=== PATIENT | male | born 1980 | race Caucasian/White ===

== ENCOUNTER 2021-02-05 18:51 | Inpatient (IN) | payer OTHER, SELFPAY ==
[2021-02-05] VITALS (17 sets, daily range): BP systolic 104–141; BP diastolic 75–103; PULSE 95–114; RESP 0–24; TEMP 36.8; O2SAT 92–94
--- NOTE | ~2021-02-05 | US_ITS ---
EXAMINATION: US venous doppler [facility] DATE: 02/07/2021 10:40 INDICATION: Chest pain. TECHNIQUE: Grayscale ultrasound images without and with compression and Doppler ultrasound images of the bilateral lower extremity veins were obtained. COMPARISON: None. FINDINGS: The visualized portions of right common femoral vein, profunda (deep) femoral vein, femoral vein, pop liteal vein, posterior tibial veins, and greater saphenous vein outflow are patent. There is thrombus in the peroneal veins. The visualized portions of left common femoral vein, profunda femoral vein, femoral vein, popliteal v ein, posterior tibial veins, and greater saphenous vein outflow are patent. There is thrombus in the peroneal veins. IMPRESSION: 1. Deep vein thrombosis involving the bilateral peroneal veins. Reviewed, dictated and finalized at location A.
--- NOTE | ~2021-02-05 | XR_ITS ---
EXAMINATION: XR chest 1V portable INDICATION: Left rib pain TECHNIQUE: Portable AP chest at 2014 hours COMPARISON: None available FINDINGS: The lungs are free of acute opacities. There is no pleural effusion or pneumothorax. The ca rdiomediastinal silhouette is normal. The visualized bones and soft tissues are unremarkable. IMPRESSION: 1. No acute cardiopulmonary abnormality. Reviewed, dictated and finalized at location A.
--- NOTE | ~2021-02-05 | US_ITS ---
EXAMINATION: US abdomen limited DATE: 02/07/2021 10:40 INDICATION: Abnormal liver function tests. TECHNIQUE: Multiple grayscale and Doppler ultrasound images of the abdomen were obtained. COMPARISON: CT 02/05/2021, 09/10/2009 FINDINGS: The visualized portions of the head and body of the pancreas are normal. The liver is shelby l without focal lesion. No liver surface nodularity. There are gallstones in the gallbladder, which i s normal in size. No gallbladder wall thickening or sonographic Lakhani sign. The common duct is shelby l and measures 5 mm. The spleen is normal in size and measures 11.4 cm. There is heterogeneous echoge nicity of the spleen. IMPRESSION: 1. Cholelithiasis. No evidence of acute cholecystitis. 2. Heterogeneous splenic echogenicity, most likely infarcts. Infection or lymphoma is less likely. Reviewed, dictated and finalized at location A. IMPRESSION: 1. Cholelithiasis. No evidence of acute cholecystitis. 2. Heterogeneous splenic echogenicity, most likely infarcts. Infection or lymph natalie is less likely.
--- NOTE | ~2021-02-05 | CT_ITS ---
EXAMINATION: CTA chest PE abdomen pel DATE: 02/05/2021 21:25 INDICATION: Chest pain, nausea and vomiting TECHNIQUE: Computed tomography angiography (CTA) of the chest was performed with 100 mL Omnipaque-350 intravenous contrast timed to evaluate the pulmonary arteries. Subsequent postcontrast images of the abdomen and pelvis are obtained. Coronal maximum intensity projection 3D-reconstructions were create d by the technologist. The dose-length product (DLP) was 664.76 mGy-cm. Automated exposure control an d iterative reconstruction technique were employed. COMPARISON: 09/18/2009 FINDINGS: CTA CHEST: The pulmonary arteries are well-opacified. There are acute emboli in the right upper lobe, right middle lobe, and the right lower lobe. There are minimal dependent airspace opacities. There i s a 6 mm nodule in the right upper lobe. A 7 mm nodule in the left lower lobe measured 4 mm and 2009. Slow interval growth suggests old granulomatous disease. The heart size is normal. There are no path ologically enlarged thoracic lymph nodes. There is no pleural effusion or pneumothorax. Fluid attenua tion is noted near the scapula which could reflect bursitis. ABDOMEN/PELVIS CT: The liver, pancreas, and adrenal glands are normal. Stones are present in the nond istended gallbladder. There is a 10 mm cyst of the right kidney. The left kidney is unremarkable. The re is an approximately 8.2 x 4.3 x 11.6 cm area of masslike infiltration of the spleen which abuts th e fundus of the stomach. There is chronic periportal lymphadenopathy. There is no free intraperitonea l gas or evidence of bowel obstruction. IMPRESSION: 1. Acute pulmonary emboli in the right upper, middle, and lower lobes. 2. Enlarged heterogeneous appearing spleen which could reflect mass, abscess, or possibly infarction. 2. Cholelithiasis without evidence of cholecystitis. These findings were discussed with Dr. Cindi Kaminski MD in the Emergency Department at 2157 hours on 02/05/2021 22:01 CDT. Reviewed, dictated and finalized at location A. IMPRESSION: 1. Acute pulmonary emboli in the right upper, middle, and lower lobes. 2. Enlarged heterogeneous appearing spleen which could reflect mass, abscess, o r possibly infarction. 2. Cholelithiasis without evidence of cholecystitis. These findings were discussed with Dr. Cindi Kaminski MD in the Emergency De partment at 2157 hours on 02/05/2021 22:01 CDT.
--- NOTE | 2021-02-05 19:03 | ECG_ITS ---
Measurements Intervals [place] Rate: 112 P: 65 PA: 161 QRS: 35 QRSD: 97 T: 29 QT: 325 QTc: 445 Interpretive Statements SINUS TACHYCARDIA POSSIBLE RIGHT ATRIAL ENLARGEMENT POSSIBLE LEFT ATRIAL ENLARGEMENT INCOMPLETE RIGHT BUNDLE BRANCH BLOCK ABNORMAL ECG Electronically Signed On 02-05-2021 19:17:08 CDT by Brandon Ching D.O.
--- NOTE | 2021-02-05 19:20 | PC.NURSE ---
patient states, I have owned a gun for years, I would never use it on myself.
--- NOTE | 2021-02-05 19:28 | PC.NURSE ---
Call to Detective Feliciano at [facility]. Per this detective youth bureau, who was first to arrive on the scene, they were told that the patient was holding a pistol to his head per pt's father, and that the father got the gun away from the patient prior to PD arrival. The patient did not make any suicidal statements to them, in their presence. The detective youth bureau states he did not file involuntary paperwork because the patient went willingly to the hospital. Explained that the patient is denying all suicidal ideations. Per Predatory Animal Exterminator Lipe's lieutenant, the PD will not be filing any involuntary paperwork at this time. Johana, ecological risk assessor made aware. Preparing to place sitter at bedside at this time due to nature of patients complaint.
--- NOTE | 2021-02-05 19:38 | PC.NURSE ---
Per senior technical recruiter, pt was incontinent of large amt of stool on arrival.
[2021-02-05] MEDS: ONDANSETRON INJ 4 MG/2 ML VIAL IV PUSH (20:00)
[2021-02-05] MEDS: SODIUM CHLORIDE 0.9% IV 1,000 ML 999 ML IV CONT ×3 (20:00→23:32)
--- NOTE | 2021-02-05 20:00 | PC.NURSE ---
1:1 sitter placed at bedside due to patient's history of holding a gun to his head. Room cleared per checklist. Pt denies needs at present.
--- NOTE | 2021-02-05 20:05 | PC.NURSE ---
called main lab to add pt inr ptt d dimer, and mg ck c-reactive prot lip @ 2003, kirsten said she will look for it
--- NOTE | 2021-02-05 20:06 | ED.GENADULT ---
HPI - General Adult General Chief complaint: Overdose <Cindi Kaminski MD - Last Filed: 02/06/21 02:39> Stated complaint: fentanyl use, weakness , nausea <Cindi Kaminski MD - Last Filed: 02/06/21 02:39> Time Seen by Provider: 02/05/21 19:26 <Cindi Kaminski MD - Last Filed: 02/06/21 02:39> Source: patient, family and RN notes reviewed <Cindi Kaminski MD - Last Filed: 02/06/21 02:39> Mode of arrival: EMS <Cindi Kaminski MD - Last Filed: 02/06/21 02:39> Limitations: no limitations <Cindi Kaminski MD - Last Filed: 02/06/21 02:39> History of Present Illness HPI narrative: This is 40 year old male with history of opioid abuse who presents for evaluation of altered mental status. His father states he has been sick since Friday. He states he ate some chineses food and he has been having nausea and vomiting since. He states he went to check on him today and he was having trouble arousing him. He states while he was trying to get patient to come to hospital he placed a gun to his head. HE was able to talk the patient into giving him the gun. He called PD and EMS. Patient reports he has been having nausea and vomiting since Friday. He does admit to snorting fentanyl daily over the past 3 days. He states he was sober years prior to this . He also reports drinking alcohol last night. PAtient denies cough, chest pain or sob. He reports left flank pain that is worse with breathing. <Cindi Kaminski MD - Last Filed: 02/06/21 02:39> Related Data Allergies/adverse reactions: Allergies Allergy/AdvReac Type Severity Reaction Status Date / Time erythromycin base Allergy Mild Hives Verified 02/05/21 19:48 <Cindi Kaminski MD - Last Filed: 02/06/21 02:39> Review of Systems Review of Systems: All systems reviewed & are unremarkable except as noted in HPI and below <Cindi Kaminski MD - Last Filed: 02/06/21 02:39> Constitutional: Constitutional: Denies chills, Reports fatigue and Denies fever(s) <Cindi Kaminski MD - Last Filed: 02/06/21 02:39> Cardiovascular: Cardiovascular: Denies chest pain <Cindi Kaminski MD - Last Filed: 02/06/21 02:39> Respiratory: Respiratory: Denies cough and Denies dyspnea <Cindi Kaminski MD - Last Filed: 02/06/21 02:39> Gastrointestinal: Gastrointestinal: Reports abdominal pain, Reports nausea and Reports vomiting <Cindi Kaminski MD - Last Filed: 02/06/21 02:39> Genitourinary: Genitourinary: Denies hematuria <Cindi Kaminski MD - Last Filed: 02/06/21 02:39> Musculoskeletal: Musculoskeletal: Reports back pain <Cindi Kaminski MD - Last Filed: 02/06/21 02:39> REPLACED BY [facility] Past Medical History Medical History: Medical History (Updated 02/06/21 @ 02:38 by Cindi Kaminski MD) Psoriasis Rupture, spleen <Cindi Kaminski MD - Last Filed: 02/06/21 02:39> Surgical History Surgical History: Surgical History (Updated 02/06/21 @ 02:38 by Cindi Kaminski MD) History of mandibular surgery <Cindi Kaminski MD - Last Filed: 02/06/21 02:39> Social History Social History: Social History (Updated 02/05/21 @ 20:19 by Cindi Kaminski MD) Alcohol intake: current Substance use type: heroin and opiates <Cindi Kaminski MD - Last Filed: 02/06/21 02:39> Exam Const: General: no acute distress and alert <Cindi Kaminski MD - Last Filed: 02/06/21 02:39> Orientation/consciousness: patient oriented x3 <Cindi Kaminski MD - Last Filed: 02/06/21 02:39> Eyes: EOM: EOMs intact bilaterally <Cindi Kaminski MD - Last Filed: 02/06/21 02:39> Resp: Effort & Inspection: normal respiratory effort and no retractions <Cindi Kaminski MD - Last Filed: 02/06/21 02:39> Auscultation: clear to auscultation bilaterally <Cindi Kaminski MD - Last Filed: 02/06/21 02:39> Cardio: Rate: tachycardic <Cindi Kaminski MD - Last Filed: 02/06/21 02:39> Rhythm: regular rhythm <Cindi Kaminski
[2021-02-05 20:14] LABS: Acetaminophen < 10 ug/mL (10-30); Albumin Level 4.4 g/dL (3.5-5.1); Alkaline Phosphatase 88 U/L (38-126); Anion Gap 10 mmol/L (8-16); Basophils Absolute Auto 0.1 K/mm3 (0.0-0.1); Basophils Percent Auto 0.2 % (0.2-1.2); Bilirubin,Total 2.3 mg/dL (0.2-1.3); Blood Urea Nitrogen 30 mg/dL (9-20); Calcium 8.6 mg/dL (8.4-10.2); Carbon Dioxide 28 mmol/L (22-30); Chloride 94 mmol/L (98-107); Eosinophils Absolute Auto 0.5 K/mm3 (0-0.3); Eosinophils Percent Auto 2.4 % (0-4.4); Estimated CRCL calculation 58 ml/min; Estimated Glomerular Filt Rate 45; Ethanol < 10 mg/dL (<10); Glucose 203 mg/dL (75-110); Hematocrit 42.7 % (42.0-52.0); Hemoglobin 15.2 g/dL (14.0-18.0); Immature Granulocyte Absolute 0.32 K/mm3 (0.00-0.031); Immature Granulocyte Percent A 1.5 % (0-0.5); Lymphocytes Absolute Auto 1.24 K/mm3 (0.9-3.2); Lymphocytes Percent Auto 5.8 % (18.3-44.2); Mean Corpuscular HGB Conc 35.6 g/dl (32-36); Mean Corpuscular Hemoglobin 30.3 pg (26-34); Mean Corpuscular Volume 85.2 fl (80-100); Mean Platelet Volume 10.5 fl (7.4-10.4); Monocytes Absolute Auto 1.6 K/mm3 (0.1-0.6); Monocytes Percent Auto 7.6 % (2.6-8.5); Neutrophils Absolute Auto 17.7 K/mm3 (1.3-6.7); Neutrophils Percent Auto 82.5 % (45.5-73.1); Nucleated Red Blood Cells Absolute Auto 0.1 K/mm3 (0.0-0.012); Nucleated Red Blood Cells Perc 0.2 % (0.0-0.2); Platelet Count Result 236 k/mm3 (150-375); Red Blood Count 5.01 M/mm3 (4.6-6.20); Red Cell Distribution Width 13.8 % (11.5-14.5); Salicylate < 1.0 mg/dL (2-20); Sodium 132 mmol/L (137-145); White Blood Count 21.4 K/mm3 (4.5-10.0)
[2021-02-05 20:16] LABS: Lactic Acid Reflex 3.4 mmol/L (0.7-2.1)
[2021-02-05 20:17] LABS: Add Urine Microscopic? YES; Amphetamine Screen Urine Negative (Negative); Appearance Urine Cloudy (Clear); Bacteria Urine Trace /hpf; Barbiturate Screen Urine Negative (Negative); Benzodiazepines Screen Urine Negative (Negative); Bilirubin Urine Negative (Negative); Blood Urine 3+ (Negative); Cannabinoid Screen Urine Positive (Negative); Cocaine Screen Urine Negative (Negative); Color Urine Amber (Yellow); Glucose Urine UA 1+ mg/dL (Negative); Ketones Urine Negative (Negative); Leukocyte Esterase Ur Negative LEU/UL (Negative); Methadone Screen Urine Negative (Negative); Mucus Urine Rare /lpf; Nitrate Urine Negative (Negative); Opiate Screen Urine Negative (Negative); Phencyclidine Screen Urine Negative (Negative); Protein Urine 2+ mg/dL (Negative); RBC Urine 0-2 /hpf (0-2); Specific Grav Ur 1.014 (1.001-1.035); Squamous Epithelial Cell Urine Few /hpf (Few); WBC Urine 16-20 /hpf
[2021-02-05 20:18] LABS: INR 1.3; Prothrombin Time 16.6 Seconds (11.1-14.7)
[2021-02-05 20:44] LABS: Thyroid Stimulating Hormone 0.597 uIU/mL (0.465-4.680)
[2021-02-05 20:45] LABS: D Dimer > 20.00 ug/mL (<0.48)
[2021-02-05 20:49] LABS: Alanine Aminotransferase 908 U/L (4-50)
[2021-02-05 21:24] LABS: Aspartate Amino Transferase 1699 U/L (17-59)
[2021-02-05 22:00] LABS: Lipase 211 U/L (23-300); Magnesium 2.3 mg/dL (1.6-2.3)
[2021-02-05 22:06] LABS: CRP 17.9 mg/dL (<1.0)
[2021-02-05 22:19] LABS: Creatine Kinase 15736 U/L (55-170)
[2021-02-05 23:03] LABS: Reflex Lactic Acid Yes or No Add Lactic
--- NOTE | 2021-02-05 23:15 | PC.NURSE ---
Report to CHIDI Avila, to continue care. 1:1 sitter remains. Preparing to collect more blood and attempting to transfer.
[2021-02-05 23:38] LABS: Basophils Percent Auto 0.2 % (0.2-1.2); Eosinophils Absolute Auto 0.8 K/mm3 (0-0.3); Eosinophils Percent Auto 3.6 % (0-4.4); Hematocrit 37.5 % (42.0-52.0); Hemoglobin 13.2 g/dL (14.0-18.0); Immature Granulocyte Absolute 0.23 K/mm3 (0.00-0.031); Immature Granulocyte Percent A 1.1 % (0-0.5); Lymphocytes Absolute Auto 2.41 K/mm3 (0.9-3.2); Lymphocytes Percent Auto 11.4 % (18.3-44.2); Mean Corpuscular HGB Conc 35.2 g/dl (32-36); Mean Corpuscular Hemoglobin 30.2 pg (26-34); Mean Corpuscular Volume 85.8 fl (80-100); Mean Platelet Volume 10.1 fl (7.4-10.4); Monocytes Absolute Auto 2.7 K/mm3 (0.1-0.6); Monocytes Percent Auto 12.8 % (2.6-8.5); Neutrophils Percent Auto 70.9 % (45.5-73.1); Nucleated Red Blood Cells Perc 0.2 % (0.0-0.2); Platelet Count Result 198 k/mm3 (150-375); Red Blood Count 4.37 M/mm3 (4.6-6.20); Red Cell Distribution Width 13.9 % (11.5-14.5); White Blood Count 21.2 K/mm3 (4.5-10.0)
[2021-02-05] MEDS: HEPARIN SOD/D5W 100 UNITS/ML 25,000 UNITS/250 ML BAG 14 UNITS IV CONT (23:41)
[2021-02-05] MEDS: HEPARIN SODIUM 5,000 UNITS/ML VIAL 6500 UNITS IV PUSH (23:41)
[2021-02-05 23:48] LABS: Lactic Acid 1.5 mmol/L (0.7-2.1)
[2021-02-05 23:51] LABS: INR 1.3; Prothrombin Time 16.5 Seconds (11.1-14.7)
[2021-02-05 23:52] LABS: Partial Thromboplastin Time 27.3 SECONDS (22.3-36.8)
[2021-02-06] VITALS (65 sets, daily range): BP systolic 102–145; BP diastolic 67–106; PULSE 85–103; RESP 13–25; O2SAT 89–100; BMI 25.4
--- NOTE | 2021-02-06 | ECHO_ITS ---
Patient Info Name: Robert Oliver Age: 40 years : 1980 Gender: Male Ht: 73 in Wt: 175 lbs BSA: 2.02 m2 HR: 84 bpm BP: 123 / 91 mmHg Heart Rhythm: Sinus Rhythm Technical Quality: Fair Exam Date: 02/06/2021 10:23 AM Exam Location: [facility] Patient Status: Emergency Admit Date: 02/05/2021 Staff Ordering Physician: Taylor Luciano MD Professor Of Astronomy: Charlene Shaffer RDCS Attending Provider: Taylor Luciano MD Referring Physician: Mustapha HUERTAS; Exam Type: CA echo dop bubble study w con Study Info Indications - rule out septic emboli Complete two-dimentional, color flow and Doppler transthoracic echocardiogram is performed with agitated saline and with contrast to opacify the left ventricle and to improve the delineation of the left ventricle endocardial borders. Contrast/Agitated Saline Contrast/Ag. Saline: Agitated Saline Amount: 20.00 ml Administered By: Susan Sanches RN Existing IV Access: Yes IV Access Condition: patent with no signs of infiltration Contrast/Ag. Saline: Definity Amount: 1.00 ml Administered By: Susan Sanches RN Existing IV Access: Yes IV Access Condition: patent with no signs of infiltration Summary 1. Technically difficult study with limited views. 2. Left ventricular chamber dimension is mildly enlarged. 3. Left ventricular systolic function is normal, estimated at 55%. Paradoxical septal wall motion with D shaped septum in systole and diastole consistent with increased right ventricular pressure and/or volume overload. 4. There is no increased left ventricular wall thickness. 5. Right ventricular chamber dimension is upper limits of normal, although not well visualized.. 6. There is trace tricuspid valve regurgitation. 7. No pulmonary hypertension, estimated pulmonary arterial systolic pressure is 13 mmHg. 8. Right to left shunt with injection of agitated saline consistent with PFO versus small ASD. Left Ventricle Left ventricular chamber dimension is mildly enlarged. Left ventricular systolic function is normal, estimated at 55%. Paradoxical septal wall motion with D shaped septum in systole and diastole consistent with increased right ventricular pressure and/or volume overload. There is no increased left ventricular wall thickness. The left ventricular diastolic function is normal. Technically difficult study with limited views. Right Ventricle Right ventricular chamber dimension is upper limits of normal, although not well visualized.. Right ventricular systolic function is probably normal. Left Atria Left atrial chamber dimension is normal. Right Atria Right atrial chamber dimension is normal. Atrial Septum Right to left shunt with injection of agitated saline consistent with PFO versus small ASD. Aortic Valve The aortic valve is not well visualized. There is no aortic valve stenosis. There is no aortic valve regurgitation. Pulmonic Valve The pulmonic valve is not well visualized. Mitral Valve The mitral valve has normal leaflets. There is no mitral valve regurgitation. Tricuspid Valve The tricuspid valve leaflets are normal. There is trace tricuspid valve regurgitation. No pulmonary hypertension, estimated pulmonary arterial systolic pressure is 13 mmHg. Pericardium/Pleural The pericardium appears normal. There is no pericardial effusion. Inferior Vena Cava Teodora
[2021-02-06] MEDS: SODIUM CHLORIDE 0.9% IV 1,000 ML 200 ML IV CONT ×2 (01:26→15:00)
--- NOTE | 2021-02-06 02:49 | PC.NURSE ---
Lab requires a redraw on specimen for TNI
--- NOTE | 2021-02-06 03:39 | PC.NURSE ---
pt to move to room 13 from H2.
[2021-02-06 03:44] LABS: Troponin I 0.555 ng/mL (0.000-0.034)
--- NOTE | 2021-02-06 03:48 | PC.NURSE ---
Pt moved to ED 13 with sitter present at bedside.
[2021-02-06 06:02] LABS: INR 1.3; Prothrombin Time 16.8 Seconds (11.1-14.7)
[2021-02-06 06:04] LABS: Partial Thromboplastin Time 74.3 SECONDS (22.3-36.8)
[2021-02-06 06:06] LABS: Basophils Absolute Auto 0.1 K/mm3 (0.0-0.1); Basophils Percent Auto 0.3 % (0.2-1.2); Eosinophils Percent Auto 0.1 % (0-4.4); Hematocrit 34.4 % (42.0-52.0); Hemoglobin 12.4 g/dL (14.0-18.0); Immature Granulocyte Absolute 0.16 K/mm3 (0.00-0.031); Immature Granulocyte Percent A 0.9 % (0-0.5); Lymphocytes Absolute Auto 2.34 K/mm3 (0.9-3.2); Lymphocytes Percent Auto 13.9 % (18.3-44.2); Mean Corpuscular Hemoglobin 30.4 pg (26-34); Mean Corpuscular Volume 84.3 fl (80-100); Mean Platelet Volume 10.2 fl (7.4-10.4); Monocytes Absolute Auto 2.1 K/mm3 (0.1-0.6); Monocytes Percent Auto 12.4 % (2.6-8.5); Neutrophils Absolute Auto 12.2 K/mm3 (1.3-6.7); Neutrophils Percent Auto 72.4 % (45.5-73.1); Nucleated Red Blood Cells Perc 0.2 % (0.0-0.2); Platelet Count Result 198 k/mm3 (150-375); Red Blood Count 4.08 M/mm3 (4.6-6.20); Red Cell Distribution Width 13.7 % (11.5-14.5); White Blood Count 16.9 K/mm3 (4.5-10.0)
[2021-02-06] MEDS: SODIUM CHLORIDE 0.9% IV 1,000 ML 125 ML (06:39)
--- NOTE | 2021-02-06 07:18 | PC.NURSE ---
pt resting on stretcher. no distress noted. sitter with pt.
[2021-02-06 09:29] LABS: Creatine Kinase > 16000 U/L (55-170)
--- NOTE | 2021-02-06 10:19 | PC.NURSE ---
pt will not answer questions when asked. states he did overdose on meds yesterday. asked me to explain what happened. keeps asking me questions when i ask him questions. states he had a gun to his head yesterday for a scare tactic for his father and it was not to kill himself. pt angry. uncooperative. evasive with questions. belongings removed since pt not cooperative with questions. paper scrubs provided. pt states even if i wanted to kill myself i have nothing in this room to do it with. pt manipulative with conversation. when asked if he wanted to kill himself states i overdosed didnt i
--- NOTE | 2021-02-06 10:55 | PC.NURSE ---
cardiology at bedside for echo
[2021-02-06] MEDS: SODIUM CHLORIDE 0.9% IV 1,000 ML 999 ML IV CONT (11:14)
--- NOTE | 2021-02-06 11:16 | PC.NURSE ---
Assumed care of pt, bedside report from Annamarie MURILLO, Pt alert and orient on stretcher, sitter at bedside, lights dimmed. VSS. Nell MURILLOspecial agent in charge at bedside discussing POC per pts request.
--- NOTE | 2021-02-06 12:30 | PC.NURSE ---
called [facility] transfer line [phone], still no beds at this time, pt on waiting list
--- NOTE | 2021-02-06 12:53 | PC.NURSE ---
Per pt permission, verbal update given to sister Keisha via phone at [phone]
[2021-02-06 13:01] LABS: INR 1.3; Prothrombin Time 16.5 Seconds (11.1-14.7)
[2021-02-06 13:02] LABS: Partial Thromboplastin Time 44.1 SECONDS (22.3-36.8)
[2021-02-06 13:10] LABS: Alanine Aminotransferase 748 U/L (4-50); Albumin Level 2.9 g/dL (3.5-5.1); Alkaline Phosphatase 58 U/L (38-126); Anion Gap 0 mmol/L (8-16); Bilirubin,Total 1.9 mg/dL (0.2-1.3); Blood Urea Nitrogen 19 mg/dL (9-20); Calcium 7.2 mg/dL (8.4-10.2); Carbon Dioxide 30 mmol/L (22-30); Chloride 101 mmol/L (98-107); Estimated CRCL calculation 119 ml/min; Estimated Glomerular Filt Rate > 60; Ethanol < 10 mg/dL (<10); Glucose 124 mg/dL (75-110); Potassium 3.3 mmol/L (3.4-5.0); Sodium 131 mmol/L (137-145)
[2021-02-06 13:22] LABS: NT Pro B Type Natriuretic Pept 1510 pg/mL (5-100)
[2021-02-06 13:25] LABS: Aspartate Amino Transferase 1492 U/L (17-59)
[2021-02-06 13:27] LABS: Troponin I 0.256 ng/mL (0.000-0.034)
[2021-02-06] MEDS: HEPARIN SODIUM 5,000 UNITS/ML VIAL 6500 UNITS IV PUSH (14:05)
--- NOTE | 2021-02-06 14:31 | PC.NURSE ---
[facility] called and spoke to this RN requesting update to see if pt still needed an ICU bed. Confirmed need, states We do not have any beds available at this time, we will keep him on the wait list and notify you if any become available. EDP made aware, harbor boat pilot Nell made aware.
--- NOTE | 2021-02-06 15:22 | PC.NURSE ---
called dietary and ordered food tray for pt at this time per vorb edp
[2021-02-06] MEDS: LORazepam (*CRX) 0.5 MG TABLET PO (15:29)
[2021-02-06] MEDS: HEPARIN SOD/D5W 100 UNITS/ML 25,000 UNITS/250 ML BAG 17 UNITS IV CONT (17:48)
--- NOTE | 2021-02-06 18:15 | PM.IMHP ---
H&P: HPI History of Present Illness Date/Time: 02/06/21 18:15 Chief Complaint: Nausea, vomiting, weakness. Narrative: This is a 40-year-old male smoker with history of IV drug use who presented to the emergency department via EMS on the evening of 02/05/2021 with reports of nausea, vomiting, and weakness. Apparently he had been ill for a couple of days with nausea, vomiting, and poor oral intake. His father had encouraged him to come to the hospital to get checked out however he did not want to come so he put a gun to his head. Dad was able to talk the patient into give him him the gun and the police department and EMS were called. In the emergency department he continues to deny suicidal ideations and tells me that he put the gun to his head ?for attention.? He was found to be quite dehydrated with an acute kidney injury and evidence of rhabdomyolysis with elevated LFTs. With further questioning the patient mentions that he had been on a ?laguerre? and had been using IV fentanyl for 3 straight days to the point where he was sleeping a majority of the time. It is unclear if he was overdosing intentionally as he has contraindicated himself on several occasions. His lactic acid level was also elevated but improved with IV fluids. A CTA of the chest, abdomen and pelvis showed acute pulmonary emboli in the right upper middle and lower lobes as well as cholelithiasis without evidence of cholecystitis and enlarged heterogeneous appearing spleen which could reflect mass, abscess, or possibly infarction. Given the imaging findings Dr. Kodi wood (general surgery) was consulted and he recommended transfer to a tertiary care facility. Initially the patient requested [facility] however no beds were available and he was ultimately accepted to [facility]. A bed was still not available today and the emergency department physician spoke with Dr. Bose, surgeon and HVAC SALES REPRESENTATIVE, and he feels that the patient's medical conditions can be managed at this facility. At the time my evaluation the patient is resting comfortably and his main complaint is of pleuritic chest pain with deep inspiration, cough, and movement. He has intermittent left flank pain but nothing significant at this time. He continues to be somewhat nauseated and has only eaten a little bit of dinner today. He is urinating but reports that his urine is quite dark. He denies homicidal and suicidal ideations. No fever, chills, or sweats. No vomiting today. No diarrhea. He denies cough and shortness of breath. No dysuria. Review of Systems Review of Systems: Narrative: Twelve systems were reviewed with pertinent positives and negatives as per HPI. He denies headache and neck ache. No sinus congestion, rhinorrhea, otalgia, or odynophagia. No cough or shortness of breath. He denies orthopnea, PND, and lower extremity edema. No recent travel. No previous history of venous thromboembolism. No recent trauma but reports history of splenic laceration about 10 years ago, treated conservatively. Denies dysuria. No concerns for STDs. States he uses clean needles and does not share needles when using IV drugs. Request hepatitis and HIV testing. The patient tells me he is going through a bad divorce and has been upset regarding that but again denies suicidal and homicidal ideations at this time. No symptoms of alcohol or opiate withdrawal. Except as documented, all other systems were reviewed and are negative. [facility] Past Medical History Medical History (Updated 02/06/21 @ 22:59 by Gillian Pineda PA-C) Polysubstance abuse Psoriasis Splenic laceration Surgical History Surgical History (Updated 02/06/21 @ 22:31 by Gillian Pineda PA-C) History of mandibular surgery History of orthopedic surgery Left fibular fracture repair. Family History Family History (Updated 02/06/21 @ 22:31 by Gillian Pineda PA-C) Mother Uterine cancer Social History Social History (Updated 02/06/21 @ 22:34 by Gillian Conti
--- NOTE | 2021-02-06 18:58 | PC.NURSE ---
[facility] doesnt have a bed yet but will leave him on the list. 185
[2021-02-06 19:01] LABS: INR 1.3; Prothrombin Time 16.5 Seconds (11.1-14.7)
[2021-02-06 19:06] LABS: Partial Thromboplastin Time 90.7 SECONDS (22.3-36.8)
--- NOTE | 2021-02-06 20:16 | PC.NURSE ---
This patient, Robert Oliver, was admitted to Intensive Care Unit-9. Patient/family oriented to hospital policies and general routines including ID bracelet, bed and alarms, visiting hours, pain management, procedures, bathroom and other care routines, personal items, smoking policy, room service/diet, and visiting hours. Information on how to activate the Rapid Response Team has been discussed. Patient/Family are encouraged to report perceived risks to care and to ask questions if they do not understand what they are told or what they should do.
[2021-02-06 23:42] LABS: Partial Thromboplastin Time 59.1 SECONDS (22.3-36.8)
[2021-02-06 23:47] LABS: Alkaline Phosphatase 72 U/L (38-126); Anion Gap 1 mmol/L (8-16); Bilirubin,Total 2.2 mg/dL (0.2-1.3); Blood Urea Nitrogen 12 mg/dL (9-20); Calcium 7.7 mg/dL (8.4-10.2); Carbon Dioxide 32 mmol/L (22-30); Chloride 102 mmol/L (98-107); Estimated CRCL calculation 135 ml/min; Estimated Glomerular Filt Rate > 60; Glucose 102 mg/dL (75-110); Magnesium 1.9 mg/dL (1.6-2.3); Potassium 3.1 mmol/L (3.4-5.0); Sodium 135 mmol/L (137-145)
[2021-02-06] MEDS: NICOTINE (*PBKC) 21 MG PATCH 1 PATCH TRANSDERM (23:57)
[2021-02-06] MEDS: HEPARIN SODIUM 5,000 UNITS/ML VIAL 3000 UNITS IV PUSH (23:58)
[2021-02-06] MEDS: metroNIDAZOLE 500 MG/ISO 100ML 500 MG/100 ML BAG 100 MG IVPB (23:58)
[2021-02-07] VITALS (15 sets, daily range): BP systolic 129–146; BP diastolic 72–90; PULSE 80–99; RESP 15–24; TEMP 36.6–37.3; O2SAT 94–99
[2021-02-07 00:04] LABS: CRP 16.9 mg/dL (<1.0); Troponin I 0.201 ng/mL (0.000-0.034)
[2021-02-07 00:15] LABS: Erythrocyte Sedimentation Rate 67 mm/hr (0-20)
[2021-02-07 00:24] LABS: HIV 1/2 Ab P24 Ag Result Negative (Negative)
[2021-02-07 00:29] LABS: Creatine Kinase > 16000 U/L (55-170)
[2021-02-07 00:30] LABS: Alanine Aminotransferase 863 U/L (4-50); Aspartate Amino Transferase 1296 U/L (17-59)
[2021-02-07 00:52] LABS: Thyroid Stimulating Hormone Reflex 0.371 uIU/mL (0.465-4.68)
[2021-02-07] MEDS: POTASSIUM CHLORIDE 20 MEQ TABLET 40 MEQ PO (00:58)
[2021-02-07] MEDS: SODIUM CHLORIDE 0.9% IV 1,000 ML 150 ML IV CONT ×4 (00:58→20:26)
[2021-02-07] MEDS: ALPRAZolam (*CRX) 0.25 MG TABLET PO ×2 (00:58→23:26)
[2021-02-07 01:23] LABS: Free T4 Free Thyroxine Reflex 1.51 ng/dL (0.78-2.19)
[2021-02-07 04:10] LABS: HAV RESULT Negative (Negative); Hepatitis B Core IgM Result Negative (Negative); Hepatitis B Surface Antigen Negative (Negative)
[2021-02-07] MEDS: LORazepam (*CRX) 0.5 MG TABLET PO (04:34)
[2021-02-07 05:12] LABS: Hepatitis C Virus Antibody Negative (Negative)
[2021-02-07 06:02] LABS: Hemoglobin A1C 5.3 % (<5.7)
[2021-02-07] MEDS: metroNIDAZOLE 500 MG/ISO 100ML 500 MG/100 ML BAG 100 MG IVPB (06:21)
[2021-02-07 06:38] LABS: Basophils Percent Auto 0.3 % (0.2-1.2); Eosinophils Absolute Auto 0.1 K/mm3 (0-0.3); Eosinophils Percent Auto 0.4 % (0-4.4); Hematocrit 33.8 % (42.0-52.0); Hemoglobin 11.8 g/dL (14.0-18.0); Immature Granulocyte Absolute 0.56 K/mm3 (0.00-0.031); Immature Granulocyte Percent A 3.6 % (0-0.5); Lymphocytes Absolute Auto 2.82 K/mm3 (0.9-3.2); Mean Corpuscular HGB Conc 34.9 g/dl (32-36); Mean Corpuscular Hemoglobin 30.1 pg (26-34); Mean Corpuscular Volume 86.2 fl (80-100); Monocytes Absolute Auto 1.9 K/mm3 (0.1-0.6); Monocytes Percent Auto 12.4 % (2.6-8.5); Neutrophils Absolute Auto 10.3 K/mm3 (1.3-6.7); Neutrophils Percent Auto 65.3 % (45.5-73.1); Nucleated Red Blood Cells Absolute Auto 0.1 K/mm3 (0.0-0.012); Nucleated Red Blood Cells Perc 0.8 % (0.0-0.2); Platelet Count Result 190 k/mm3 (150-375); Red Blood Count 3.92 M/mm3 (4.6-6.20); Red Cell Distribution Width 14.5 % (11.5-14.5); White Blood Count 15.7 K/mm3 (4.5-10.0)
[2021-02-07 06:51] LABS: Alkaline Phosphatase 66 U/L (38-126); Anion Gap 0 mmol/L (8-16); Blood Urea Nitrogen 9 mg/dL (9-20); Calcium 7.9 mg/dL (8.4-10.2); Carbon Dioxide 29 mmol/L (22-30); Chloride 102 mmol/L (98-107); Estimated CRCL calculation 156 ml/min; Estimated Glomerular Filt Rate > 60; Glucose 108 mg/dL (75-110); Potassium 3.2 mmol/L (3.4-5.0); Sodium 131 mmol/L (137-145)
[2021-02-07] MEDS: HEPARIN SOD/D5W 100 UNITS/ML 25,000 UNITS/250 ML BAG 19 UNITS IV CONT (07:05)
[2021-02-07 07:06] LABS: INR 1.1; Prothrombin Time 15.2 Seconds (11.1-14.7)
[2021-02-07 07:13] LABS: Alanine Aminotransferase 865 U/L (4-50); Aspartate Amino Transferase 1161 U/L (17-59)
[2021-02-07 07:14] LABS: Creatine Kinase 15231 U/L (55-170)
[2021-02-07 07:24] LABS: Partial Thromboplastin Time 58.7 SECONDS (22.3-36.8)
[2021-02-07] MEDS: NICOTINE (*PBKC) 21 MG PATCH 1 PATCH TRANSDERM (07:55)
--- NOTE | 2021-02-07 10:08 | PM.CNGS ---
Assessment and Plan Assessment and plan (1) Abnormal CT of the abdomen: Code(s): R93.5 - Abnormal findings on diagnostic imaging of other abdominal regions, including retroperitoneum Status: Acute Assessment and Plan: This is the primary reason for our consultation. CTA of the chest, abdomen, and pelvis was reviewed and discussed with the patient in detail. There is evidence of an enlarged heterogenous appearing spleen, of which the etiology is unknown. This could be a splenic infarct that originated from septic emboli versus an emboli from his newly found right to left cardiac shunt. He also has a history of trauma to his spleen, which could potentially play a role in the abnormalities seen on the CTA, although this was about 15 years ago. This seems less likely to be a splenic abscess or mass. Clinically, the patient is having no abdominal pain and his exam is largely benign. We would recommend to continue treating the acute infection with broad-spectrum IV antibiotics. If he begins having more abdominal pain then we can treat with analgesics as needed, and otherwise closely monitor the patient. He is already showing signs of improvement with the current treatment. His white blood cell count is trending down and his lactic acid normalized following IV fluids. Would agree with ID consultation and will also await their recommendations. No indication for surgical intervention at this time. We will continue to closely monitor the patient while he is being treated for his other acute issues, and the spleen could be further evaluated over time or even as an outpatient. Okay from a surgical standpoint to allow the patient to be advanced on a diet. Thank you for allowing us to see the patient in consultation and we will continue to follow along with you. (2) Right to left cardiac shunt: Code(s): I28.0 - Arteriovenous fistula of pulmonary vessels Status: Acute Assessment and Plan: Right to left cardiac shunt consistent with PFO versus small ASD on echocardiogram. Cardiology consulted. Could explain splenic infarct. (3) Sepsis: Code(s): A41.9 - Sepsis, unspecified organism Status: Acute Assessment and Plan: Sepsis criteria met in the ED with leukocytosis, tachycardia, and lactic acidosis. Lactic acid normalized. Blood cultures pending. Continue empiric IV antibiotics. Agree with ID consultation. (4) Drug overdose: Code(s): T50.901A - Poisoning by unspecified drugs, medicaments and biological substances, accidental (unintentional), initial encounter Status: Acute (5) Rhabdomyolysis: Code(s): M62.82 - Rhabdomyolysis Status: Acute Assessment and Plan: CK > 16,000 on initial labs. Possibly secondary to his sedentary positioning following heavy drug use. Continue IV fluids and management per Hospitalist. (6) Pulmonary emboli: Code(s): I26.99 - Other pulmonary embolism without acute cor pulmonale Status: Acute Assessment and Plan: Currently on a Heparin drip. Currently being worked up for the source of this. Venous dopplers ordered. (7) Acute kidney injury: Code(s): N17.9 - Acute kidney failure, unspecified Status: Acute Assessment and Plan: Related to rhabdomyolysis and dehydration. Improved with current treatment. Creatinine normal. (8) Elevated troponin: Code(s): R77.8 - Other specified abnormalities of plasma proteins Status: Acute Assessment and Plan: Serial troponins were flat. Echocardiogram noted. Management per Hospitalist. (9) Transaminitis: Code(s): R74.01 - Elevation of levels of liver transaminase levels Status: Acute Assessment and Plan: Hepatitis panel negative. Likely related to rhabdomyolysis. (10) Polysubstance abuse: Code(s): F19.10 - Other psychoactive substance abuse, uncomplicated Status: Acute Assessment and Plan: Opiate and tobacco abuse. Patient repo
[2021-02-07 14:27] LABS: Total Triiodothyronine (T3) 0.94 NG/ML (0.97-1.69)
--- NOTE | 2021-02-07 14:38 | PM.PNGS ---
Progress Note: A&P Assessment and Plan (1) Abnormal CT of the abdomen: Code(s): R93.5 - Abnormal findings on diagnostic imaging of other abdominal regions, including retroperitoneum Status: Acute Assessment and Plan: Abnormal spleen on CT seems to be asymptomatic at the present time. I would expect splenic infarction to be painful. Apparently, he had a pretty significant splenic injury 15 years ago. It is possible that these are chronic changes associated with the injury. I do not think there is a splenic abscess or tumor. Worse case scenario would be splenic infarction which I would treat with analgesics as needed and evaluate for a source which is being done. He is on anticoagulation which will help with the splenic infarction should there actually be 1. I talked with the patient and his sister and explained our surgical role. It is unlikely any surgery will be needed. We will follow along with you. (2) Pulmonary emboli: Code(s): I26.99 - Other pulmonary embolism without acute cor pulmonale Status: Acute Assessment and Plan: Being anticoagulated. (3) Polysubstance abuse: Code(s): F19.10 - Other psychoactive substance abuse, uncomplicated Status: Chronic Assessment and Plan: Associated with suicidal ideation. (4) Sepsis: Code(s): A41.9 - Sepsis, unspecified organism Status: Acute Assessment and Plan: Agree with antibiotics. Source not really evident to me at this time. Subjective Subjective Date/Time Seen: 02/07/21 14:38 Patient is a 40-year-old man who came to the emergency room 2 days ago with evidence of sepsis and pulmonary emboli. He has a history of polysubstance abuse. He denies recent IV substance abuse but was taking fentanyl nasally and also drinking alcohol. There was also historical evidence of suicidal ideation. Workup in the emergency room showed pulmonary embolism in all 3 lobes. There were no left-sided pulmonary emboli. His CT scan also showed an abnormal spleen. The spleen was heterogeneous. He has a history of a significant splenic injury requiring hospitalization but no splenic surgery about 15 years ago. Ultrasound of the upper abdomen suggested splenic infarct. He was also noted to have gallstones but no signs of cholecystitis. Patient was seen this afternoon and actually feels much better than he did yesterday in the emergency room. He had eaten a large lunch without difficulty. He has no problems with early satiety. He also had a bowel movement without difficulty. He denies any abdominal pain at this time. Earlier today he was having some substernal pleuritic chest pain but even that seems to be better. He has been seen by Dr. johnson for Infectious Disease and is only on IV Rocephin. He is anticoagulated for the pulmonary emboli as well as for the potential splenic emboli. A venous Doppler of the lower extremities showed bilateral peroneal vein thrombosis. He had a cardiac echo which did not show vegetations but did strongly suggest a patent foramen ovale with a right to left shunt. He is seen now in surgical consultation. I reviewed the consultation done by EDINSON Saunders, and discussed the patient with her. I agree with her consultation as written. Review of Systems Review of Systems: All systems reviewed & are unremarkable except as noted in HPI and below Constitutional: Constitutional: Reports as per HPI, Denies chills, Denies fever(s) and Reports increased appetite Cardiovascular: Cardiovascular: Denies chest pain, Denies diaphoresis, Denies dyspnea and Denies paroxysmal nocturnal dyspnea Respiratory: Respiratory: Denies chest congestion, Denies cough and Denies dyspnea Gastrointestinal: Gastrointestinal: Reports as per HPI, Denies abdominal pain, Denies constipation, Denies GI cramping, Denies early satiety, Denies heartburn, Denies nausea and Denies vomiting Integumentary/Breasts: Skin/Breast: Denies l
[2021-02-07 15:03] LABS: Partial Thromboplastin Time 69.6 SECONDS (22.3-36.8)
[2021-02-07] MEDS: HEPARIN SODIUM 5,000 UNITS/ML VIAL 3000 UNITS IV PUSH (15:22)
--- NOTE | 2021-02-07 16:02 | PM.CNCAR ---
Assessment and Plan Assessment and plan (1) PFO (patent foramen ovale): Code(s): Q21.1 - Atrial septal defect Status: Acute Assessment and Plan: Incidentally noted by 2D echocardiogram. This finding has no bearing on his DVT, pulmonary embolism or clinical presentation unless it is truly felt he has distal arterial embolic phenomenon namely splenic infarction. Per surgical evaluation do not feel clinically splenic findings are veterans contact representative infarction but reflective of old injury coincident with patient's reported prior splenic injury. There is no indication for ASD closure unless it is felt he truly has arterial embolic complications such as splenic infarction. Otherwise, there is no further workup cardiac perspective indicated at this time and we will sign off. However, as above, if splenic infarction is felt to truly be present then referral to Dr. Pablo Black at [facility] for consideration of PFO closure may be indicated. Given IV drug abuse history this would not be something that would be ideally pursued given endocarditis risk. If referral felt warranted, transesophageal echocardiogram at some point in future would be necessary otherwise no indication at present. I directly counseled the patient he must remain compliant with systemic anticoagulation to reduce risk for subsequent embolic phenomena which may be life-threatening and or fatal. Patient verbalized understanding states he will be compliant as he has a 4-year-old. I explained the above in detail to the patient verbalized understanding and agreed with plan of care. Please contact us if we may be of any further assistance (2) Elevated troponin: Code(s): R77.8 - Other specified abnormalities of plasma proteins Status: Acute Assessment and Plan: Secondary to pulmonary emboli, rhabdomyolysis, acute renal failure not acute coronary syndrome/plaque rupture. He does not have anginal symptoms. No wall motion abnormalities on echocardiogram. This is consistent with a non ND troponin elevation. (3) Pulmonary emboli: Code(s): I26.99 - Other pulmonary embolism without acute cor pulmonale Status: Acute Assessment and Plan: Per primary service. Systemic anticoagulation transition to oral anticoagulation with DVT/PE protocol. (4) Polysubstance abuse: Code(s): F19.10 - Other psychoactive substance abuse, uncomplicated Status: Chronic Assessment and Plan: Social work, drug rehabilitation referral, community support. (5) Abnormal CT of the abdomen: Code(s): R93.5 - Abnormal findings on diagnostic imaging of other abdominal regions, including retroperitoneum Status: Acute Assessment and Plan: As above, surgery feel splenic abnormalities related to prior injury less likely splenic infarction given clinical presentation and lack of corroborating symptoms. Nonetheless, abdominal ultrasound interpreted by Radiology as possible splenic infarct. (6) Rhabdomyolysis: Code(s): M62.82 - Rhabdomyolysis Status: Acute Assessment and Plan: IV fluid hydration, monitor CK levels per primary service. (7) Transaminitis: Code(s): R74.01 - Elevation of levels of liver transaminase levels Status: Acute Assessment and Plan: Secondary to above. Continue to monitor closely. History of Present Illness History of Present Illness Consult date/time: Date of service: 02/07/21 16:02 Cardiology consultation at the request of ABBY Wiggins of the [facility] service for our opinion regarding PFO noted on echocardiogram in setting of pulmonary embolism. Requesting physician: Gillian Pineda PA-C Consult reason: Other (Pulmonary embolism, patent foramen ovale) Reason For Visit: Pulmonary emboli, NSTEMI, Splenic infarct, Narrative: Patient is a 40-year-old male with a history of intravenous drug use, history of splenic injury many years ago who presented to the em
--- NOTE | 2021-02-07 16:06 | PM.IMPN ---
Progress Note: A&P Assessment and Plan (1) Polysubstance abuse: Code(s): F19.10 - Other psychoactive substance abuse, uncomplicated Status: Chronic (2) Sepsis: Code(s): A41.9 - Sepsis, unspecified organism Status: Acute (3) Right to left cardiac shunt: Code(s): I28.0 - Arteriovenous fistula of pulmonary vessels Status: Acute (4) PFO (patent foramen ovale): Code(s): Q21.1 - Atrial septal defect Status: Acute (5) Elevated troponin: Code(s): R77.8 - Other specified abnormalities of plasma proteins Status: Acute (6) Abnormal CT of the abdomen: Code(s): R93.5 - Abnormal findings on diagnostic imaging of other abdominal regions, including retroperitoneum Status: Acute (7) Drug overdose: Code(s): T50.901A - Poisoning by unspecified drugs, medicaments and biological substances, accidental (unintentional), initial encounter Status: Acute (8) Rhabdomyolysis: Code(s): M62.82 - Rhabdomyolysis Status: Acute (9) Transaminitis: Code(s): R74.01 - Elevation of levels of liver transaminase levels Status: Acute (10) Acute kidney injury: Code(s): N17.9 - Acute kidney failure, unspecified Status: Acute (11) Splenic mass: Code(s): R16.1 - Splenomegaly, not elsewhere classified Status: Acute (12) Pulmonary emboli: Code(s): I26.99 - Other pulmonary embolism without acute cor pulmonale Status: Acute (13) Deep venous thrombosis (DVT) of both peroneal veins: Code(s): I82.453 - Acute embolism and thrombosis of peroneal vein, bilateral Status: Acute Additional Plan The patient met sepsis criteria on arrival to the emergency department with tachycardia, leukocytosis, lactic acidosis, and acute kidney injury. Lactic acid level has normalized with IV fluid rehydration. Blood cultures have been obtained and are pending. He has been started on empiric antibiotics given findings of possible splenic abscess on imaging. Dr. Jones (infectious Disease) has been consulted and his input is appreciated. Reportedly the patient overdosed on fentanyl several days ago and had been sleeping for days. He denies at this time that it was an intentional however has given conflicting answers to other providers. Crisis has seen him in evaluation and a sitter has been placed in the room as he also held a gun to his head and probably needs inpatient psychiatric treatment on discharge. Presumably secondary to his 3 day fentanyl ?laguerre? in which he any much slept in bed without moving much. Continue aggressive IV fluid rehydration with close monitoring of volume status, renal function, and CK. TOREY 2/2 rhabdomyolysis and dehydration. Repeat renal function has since normalized. Continue to monitor closely while trending CK. Transaminitis w history of IV drug use will check hepatitis panel as well. Cholelithiasis noted on imaging but no evidence of acute cholecystitis on CT or by exam. Nonetheless will order right upper quadrant ultrasound and continue to monitor. It is difficult to say why he has pulmonary emboli as he does not seem to have a lot of risk factors aside from not moving much for 3 days over the weekend as per HPI. CT also shows possible splenic infarction or abscess, could these be septic emboli? Continue heparin drip. Venous Doppler ultrasounds ordered for further evaluation. His troponin is elevated but has remained pretty flat. LV systolic function was normal on echo although there were findings consistent with increased right ventricular pressure and/or volume overload which may be due to his PE. No pulmonary hypertension noted. A large heterogenous appearing spleen noted on CT which could reflect mass, abscess, or possibly infarction. He is currently on heparin drip given pulmonary embolism. He is not having any significant pain at this time. As he technically meets sepsis criteria I suppose he could
[2021-02-07] MEDS: hydrOXYzine HCL 25 MG TABLET 50 MG PO (18:24)
[2021-02-07] MEDS: HEPARIN SOD/D5W 100 UNITS/ML 25,000 UNITS/250 ML BAG 21 UNITS IV CONT (20:26)
[2021-02-07 21:26] LABS: Partial Thromboplastin Time 83.2 SECONDS (22.3-36.8)
[2021-02-07] MEDS: traMADol HCL (*CRX) 25 MG TABLET PO (22:18)
[2021-02-08] VITALS (14 sets, daily range): BP systolic 120–153; BP diastolic 71–94; PULSE 69–89; RESP 16–22; TEMP 36.4–37.2; O2SAT 95–100
[2021-02-08 03:29] LABS: Alanine Aminotransferase 714 U/L (4-50); Albumin Level 2.8 g/dL (3.5-5.1); Alkaline Phosphatase 80 U/L (38-126); Anion Gap 1 mmol/L (8-16); Aspartate Amino Transferase 629 U/L (17-59); Blood Urea Nitrogen 5 mg/dL (9-20); Calcium 8.1 mg/dL (8.4-10.2); Carbon Dioxide 28 mmol/L (22-30); Chloride 109 mmol/L (98-107); Estimated CRCL calculation 156 ml/min; Estimated Glomerular Filt Rate > 60; Glucose 107 mg/dL (75-110); Magnesium 1.7 mg/dL (1.6-2.3); Phosphorus 1.9 mg/dL (2.5-4.5); Sodium 138 mmol/L (137-145)
[2021-02-08 03:46] LABS: Partial Thromboplastin Time 75.1 SECONDS (22.3-36.8)
[2021-02-08 03:57] LABS: Basophils Absolute Auto 0.4 K/mm3 (0.0-0.1); Basophils Percent Auto 1.9 % (0.2-1.2); Eosinophils Absolute Auto 0.3 K/mm3 (0-0.3); Eosinophils Percent Auto 1.4 % (0-4.4); Hematocrit 33.1 % (42.0-52.0); Hemoglobin 11.9 g/dL (14.0-18.0); Immature Granulocyte Percent A 5.6 % (0-0.5); Immature Platelet Fraction Pct 6.5 % (0.9-11.2); Lymphocytes Absolute Auto 4.23 K/mm3 (0.9-3.2); Lymphocytes Percent Auto 21.4 % (18.3-44.2); Mean Corpuscular Hemoglobin 30.2 pg (26-34); Mean Platelet Volume 10.6 fl (7.4-10.4); Monocytes Absolute Auto 2.9 K/mm3 (0.1-0.6); Monocytes Percent Auto 14.5 % (2.6-8.5); Neutrophils Absolute Auto 10.9 K/mm3 (1.3-6.7); Neutrophils Percent Auto 55.2 % (45.5-73.1); Nucleated Red Blood Cells Absolute Auto 0.1 K/mm3 (0.0-0.012); Nucleated Red Blood Cells Perc 0.5 % (0.0-0.2); Platelet Count Result 204 k/mm3 (150-375); Red Blood Count 3.94 M/mm3 (4.6-6.20); Red Cell Distribution Width 13.6 % (11.5-14.5); White Blood Count 19.7 K/mm3 (4.5-10.0)
[2021-02-08] MEDS: SODIUM CHLORIDE 0.9% IV 1,000 ML 150 ML IV CONT ×3 (05:50→20:10)
[2021-02-08] MEDS: NICOTINE (*PBKC) 21 MG PATCH 1 PATCH TRANSDERM (08:38)
[2021-02-08] MEDS: HEPARIN SOD/D5W 100 UNITS/ML 25,000 UNITS/250 ML BAG 21 UNITS IV CONT (08:41)
--- NOTE | 2021-02-08 11:03 | PM.PNGS ---
Progress Note: A&P Assessment and Plan (1) Abnormal CT of the abdomen: Code(s): R93.5 - Abnormal findings on diagnostic imaging of other abdominal regions, including retroperitoneum Status: Acute Assessment and Plan: Abnormalities in the spleen do not seem to be causing any symptoms at all. At this point I think they are more consistent with his splenic injury 15 years ago causing chronic changes to the spleen. Will follow for now but do not anticipate any surgical treatment being needed. Patient will be anticoagulated for pulmonary emboli which would be adequate treatment for any splenic emboli. (2) Polysubstance abuse: Code(s): F19.10 - Other psychoactive substance abuse, uncomplicated Status: Chronic Assessment and Plan: Possibly suicidal ideation as well (3) Right to left cardiac shunt: Code(s): I28.0 - Arteriovenous fistula of pulmonary vessels Status: Acute Assessment and Plan: Plan per Cardiology (4) Pulmonary emboli: Code(s): I26.99 - Other pulmonary embolism without acute cor pulmonale Status: Acute Assessment and Plan: Anticoagulation in progress. Subjective Subjective Date/Time Seen: 02/08/21 11:03 Patient reports: no new complaints, feels better, pain is less (Denies abdominal pain), tolerating a regular diet, bowel movement and afebrile Review of Systems Review of Systems: All systems reviewed & are unremarkable except as noted in HPI and below Constitutional: Constitutional: Denies anorexia, Denies chills, Denies fever(s), Denies headache(s) and Reports increased appetite Gastrointestinal: Gastrointestinal: Reports as per HPI, Denies abdominal pain, Denies constipation, Denies dyspepsia, Denies heartburn and Denies nausea Neurologic: Denies confusion and Denies headache(s) Exam Const: General: comfortable and no acute distress; No confusion Orientation/consciousness: patient oriented x3 and No confusion GI: Inspection: normal to inspection, non-distended and scaphoid GI Palp: Yes Soft to palpation, No Tenderness to palpation present (GI), No Guarding due to palpation present (GI), No Splenomegaly present, No Palpable mass present and No Rebound tenderness present Auscultation: normal bowel sounds Neuro: General: patient oriented x3, no focal motor deficits and No confusion Extrem: General: no calf tenderness and no edema Psych: Appearance: grossly normal Speech and movement: Normal speech and movement present Affect: normal affect Attitude: cooperative Thought process: Normal thought process present Objective Data Vital Signs Vital Signs: Vital Signs - 24 hr 02/07/21 12:00 02/07/21 14:00 02/07/21 16:00 Temperature Pulse Rate 94 85 91 Respiratory Rate 15 18 Blood Pressure 139/84 144/89 H Pulse Oximetry 96 97 02/07/21 17:37 02/07/21 20:00 02/07/21 20:27 Temperature 36.8 C Pulse Rate 84 84 80 Respiratory Rate 22 H Blood Pressure 129/72 Pulse Oximetry 99 02/07/21 22:00 02/07/21 23:59 02/08/21 00:00 Temperature 37.2 C Pulse Rate 85 80 89 Respiratory Rate 20 Blood Pressure 134/79 Pulse Oximetry 99 02/08/21 01:58 02/08/21 04:00 02/08/21 04:14 Temperature 36.6 C Pulse Rate 69 72 69 Respiratory Rate 22 H Blood Pressure 120/71 Pulse Oximetry 99 02/08/21 05:47 02/08/21 08:00 Temperature Pulse Rate 80 77 Respiratory Rate 18 Blood Pressure Pulse Oximetry 98 Intake/Output Intake/Output: Intake & Output 02/05/21 02/06/21 02/07/21 02/08/21 23:59 23:59 23:59 23:59 Intake Total 1999 2294 6299 2440 Output Total 3637 6528 2627 Balance 1999 7277 132 -900 Meds/Results Medications: Active Medications Generic Name Dose Route Start Last Admin Trade Name Freq PRN Reason Stop Dose Admin Alprazolam 0.25 mg 02/07/21 23:19 02/07/21 23:26 Alprazolam (*Crx) 0.25 Mg Tablet PO 0.25 mg ONCE PRN Administration Anxiety Heparin Sodium (Porc
--- NOTE | 2021-02-08 12:40 | WPDINFPN2 ---
Progress Note: A&P Assessment and Plan (1) Pulmonary emboli: Code(s): I26.99 - Other pulmonary embolism without acute cor pulmonale Status: Acute Assessment and Plan: 1. leukocytosis, physiologic: past spleen injury, rhabdomyolysis, and PE with infarction 2. Psoriasis, no immune suppressant REC No further antibiotics, f/u wbc over time. Call if Qs Subjective Date/time seen: 02/08/21 12:40 Objective Data Vital Signs Vital Signs: Vital Signs - 24 hr 02/07/21 14:00 02/07/21 16:00 02/07/21 17:37 Temperature Pulse Rate 85 91 84 Respiratory Rate 18 Blood Pressure 144/89 H Pulse Oximetry 97 02/07/21 20:00 02/07/21 20:27 02/07/21 22:00 Temperature 36.8 C Pulse Rate 84 80 85 Respiratory Rate 22 H Blood Pressure 129/72 Pulse Oximetry 99 02/07/21 23:59 02/08/21 00:00 02/08/21 01:58 Temperature 37.2 C Pulse Rate 80 89 69 Respiratory Rate 20 Blood Pressure 134/79 Pulse Oximetry 99 02/08/21 04:00 02/08/21 04:14 02/08/21 05:47 Temperature 36.6 C Pulse Rate 72 69 80 Respiratory Rate 22 H Blood Pressure 120/71 Pulse Oximetry 99 02/08/21 08:00 02/08/21 11:08 02/08/21 11:38 Temperature 36.4 C L Pulse Rate 77 79 Respiratory Rate 18 16 Blood Pressure 151/94 H Pulse Oximetry 98 100 95 Intake/Output Intake/Output: Intake & Output 02/05/21 02/06/21 02/07/21 02/08/21 23:59 23:59 23:59 23:59 Intake Total 1999 5836 6726 2440 Output Total 2300 5950 2625 Balance 1999 2253 463 -092 Meds/Results Medications: Active Medications Generic Name Dose Route Start Last Admin Trade Name Freq PRN Reason Stop Dose Admin Alprazolam 0.25 mg 02/07/21 23:19 02/07/21 23:26 Alprazolam (*Crx) 0.25 Mg Tablet PO 0.25 mg ONCE PRN Administration Anxiety Heparin Sodium (Porcine) 6,500 units 02/05/21 22:44 02/06/21 14:05 Heparin Sodium 5,000 Units/Ml Vial IV PUSH 6,500 units PRN PRN Administration aPTT less than 55 seconds Heparin Sodium (Porcine) 3,000 units 02/05/21 22:44 02/07/21 15:22 Heparin Sodium 5,000 Units/Ml Vial IV PUSH 3,000 units PRN PRN Administration aPTT 55 - 70 seconds Hydroxyzine HCl 50 mg 02/07/21 18:16 02/07/21 18:24 Hydroxyzine Hcl 25 Mg Tablet PO 50 mg Q6H PRN Administration Agitation Heparin Sodium/Dextrose 25,000 units in 250 mls @ 21 mls/hr 02/05/21 22:45 02/08/21 08:41 Heparin Sodium/D5w 100 Units/Ml IV CONT 2,100 units/hr .[id number] WISAM 21 mls/hr Administration Protocol 2,100 UNITS/HR Sodium Chloride 1,000 mls @ 150 mls/hr 02/07/21 00:15 02/08/21 05:50 Normal Saline Iv IV CONT 150 mls/hr .[id number] WISAM Administration Nicotine 1 patch 02/06/21 22:20 02/08/21 08:38 Nicotine (*Pbkc) 21 Mg Patch TRANSDERM 1 patch QAM WISAM Administration Potassium Chloride 40 meq 02/08/21 17:00 Potassium Chloride 20 Meq Tablet.Er PO 02/09/21 11:00 BIDWM WISAM Radiology Results: ITS Impressions Chest X-Ray 02/05/21 20:28 IMPRESSION: 1. No acute cardiopulmonary abnormality. Chest/Abdomen/Pelvis CTA 02/05/21 21:33 IMPRESSION: 1. Acute pulmonary emboli in the right upper, middle, and lower lobes. 2. Enlarged heterogeneous appearing spleen which could reflect mass, abscess, or possibly infarction. 2. Cholelithiasis without evidence of cholecystitis. These findings were discussed with Dr. Cindi Kaminski MD in the Emergency Department at 2157 hours on 02/05/2021 22:01 CDT. Venous Doppler Study 02/07/21 10:44 IMPRESSION: 1. Deep vein thrombosis involving the bilateral peroneal veins. Abdomen Ultrasound 02/07/21 11:39 IMPRESSION: 1. Cholelithiasis. No evidence of acute cholecystitis. 2. Heterogeneous splenic echogenicity, most likely infarcts. Infection or lymphoma is less likely. Labs Labs: Laboratory Results - last 24 hr 02/06/21 02/07/21 02/07/21 23:23 14:35 21:11 WBC RBC H
[2021-02-08] MEDS: POTASSIUM CHLORIDE 20 MEQ TABLET.ER 40 MEQ PO (19:00)
--- NOTE | 2021-02-08 19:54 | PM.IMPN ---
Progress Note: A&P Assessment and Plan (1) Deep venous thrombosis (DVT) of both peroneal veins: Code(s): I82.453 - Acute embolism and thrombosis of peroneal vein, bilateral Status: Acute (2) PFO (patent foramen ovale): Code(s): Q21.1 - Atrial septal defect Status: Acute (3) Polysubstance abuse: Code(s): F19.10 - Other psychoactive substance abuse, uncomplicated Status: Chronic (4) Right to left cardiac shunt: Code(s): I28.0 - Arteriovenous fistula of pulmonary vessels Status: Acute (5) Sepsis: Code(s): A41.9 - Sepsis, unspecified organism Status: Acute Assessment and Plan: Ruled out ID consult and Rocephin has been discontinued (6) Elevated troponin: Code(s): R77.8 - Other specified abnormalities of plasma proteins Status: Acute (7) Abnormal CT of the abdomen: Code(s): R93.5 - Abnormal findings on diagnostic imaging of other abdominal regions, including retroperitoneum Status: Acute (8) Drug overdose: Code(s): T50.901A - Poisoning by unspecified drugs, medicaments and biological substances, accidental (unintentional), initial encounter Status: Acute (9) Rhabdomyolysis: Code(s): M62.82 - Rhabdomyolysis Status: Acute (10) Transaminitis: Code(s): R74.01 - Elevation of levels of liver transaminase levels Status: Acute (11) Acute kidney injury: Code(s): N17.9 - Acute kidney failure, unspecified Status: Acute (12) Pulmonary emboli: Code(s): I26.99 - Other pulmonary embolism without acute cor pulmonale Status: Acute Additional Plan The patient met sepsis criteria on arrival to the emergency department with tachycardia, leukocytosis, lactic acidosis, and acute kidney injury. Lactic acid level has normalized with IV fluid rehydration. Blood cultures have been obtained and are pending. He has been started on empiric antibiotics given findings of possible splenic abscess on imaging. Dr. Jones (infectious Disease) has been consulted and his input is appreciated. Reportedly the patient overdosed on fentanyl several days ago and had been sleeping for days. He denies at this time that it was an intentional however has given conflicting answers to other providers. Crisis has seen him in evaluation and a sitter has been placed in the room as he also held a gun to his head and probably needs inpatient psychiatric treatment on discharge. Presumably secondary to his 3 day fentanyl ?laguerre? in which he any much slept in bed without moving much. Continue aggressive IV fluid rehydration with close monitoring of volume status, renal function, and CK. TOREY 2/2 rhabdomyolysis and dehydration. Repeat renal function has since normalized. Continue to monitor closely while trending CK. Transaminitis w history of IV drug use will check hepatitis panel as well. Cholelithiasis noted on imaging but no evidence of acute cholecystitis on CT or by exam. Nonetheless will order right upper quadrant ultrasound and continue to monitor. It is difficult to say why he has pulmonary emboli as he does not seem to have a lot of risk factors aside from not moving much for 3 days over the weekend as per HPI. CT also shows possible splenic infarction or abscess, could these be septic emboli? Continue heparin drip. Venous Doppler ultrasounds ordered for further evaluation. His troponin is elevated but has remained pretty flat. LV systolic function was normal on echo although there were findings consistent with increased right ventricular pressure and/or volume overload which may be due to his PE. No pulmonary hypertension noted. A large heterogenous appearing spleen noted on CT which could reflect mass, abscess, or possibly infarction. He is currently on heparin drip given pulmonary embolism. He is not having any significant pain at this time. As he technically meets sepsis criteria I suppose he could have an underlying
--- NOTE | 2021-02-08 20:00 | CONS_ITS ---
DATE OF CONSULTATION: 02/08/2021 REASON FOR CONSULTATION: Leukocytosis. HISTORY OF PRESENT ILLNESS: 40-year-old male with psoriasis. He is on no systemic nor topical immune suppressants for the same. He has been on no antibiotics in the last 6 weeks for any purpose and no other immunosuppressants for other indications in the last 6 weeks. He has never been told of leukocytosis. He was admitted to the hospital on February 05 with a suicidal gesture or intent, also rhabdomyolysis. He has had chest pain, has been found to have pulmonary emboli in association with lower extremity bilateral DVT. With his leukocytosis, initially he was given ceftriaxone, metronidazole, and vancomycin. I stopped two latter yesterday afternoon and ceftriaxone continues. His hospital course has been complicated by an abnormal echocardiogram with possible PFO or small ASD. He also had an ultrasound and abdomen CT which demonstrates a splenic injury. He reports a significant injury to the spleen about 15 years ago. PRESENT MEDICATIONS: As above. HABITS: Active tobacco, also alcohol, IV drug use. ALLERGIES: ERYTHROMYCIN CAUSED HIVES. PAST MEDICAL HISTORY: Previous pancreatitis, splenic laceration, mandibular surgery. FAMILY HISTORY: Uterine cancer. SOCIAL HISTORY: He is staying with his parents as he goes through a divorce. He has a 4-year-old child. REVIEW OF SYSTEMS: Constitutional, skin, respiratory, GI, musculoskeletal otherwise negative. EXAM: GENERAL: Middle-aged male who appears actual age. No acute distress. VITAL SIGNS: Consistently afebrile, 79, 16, 151/94, 95% on room air. SKIN: Psoriasis over upper and lower extremities. No cellulitis. EENT: The conjunctivae are normal. Mucous membranes well hydrated. NECK: No masses or meningismus. LUNGS: Clear to auscultation and percussion. CARDIAC: Regular rate and rhythm without murmur, gallop. Pulses 2+. ABDOMEN: Nontender, soft. No masses. No organomegaly. EXTREMITIES: Well perfused. No clubbing, cyanosis, edema. LABORATORY DATA: Blood cultures, no growth after 3 days incubation. Urine culture final no growth. His white count has been consistently high 21.4 on admission, 19.7 today, hemoglobin 11.9, platelets are 204. His differential noted. His chemistry panels have been normal other than low BUN and creatinine. Transaminases are 20 times normal but declining, alkaline phosphatase normal. CPK was high, also declining. His albumin is 2.8. Hepatitis panel and HIV screen all nonreactive. RADIOLOGY: CT of the abdomen and pelvis along with the abdominal ultrasound show possible splenic infarct. No other acute findings. ASSESSMENT: 1. Physiologic leukocytosis due to past splenic infarct and perhaps acute as well, also due to rhabdomyolysis and due to pulmonary emboli with infarction. No infections identified by clinical evaluation. 2. Psoriasis without substantial immunocompromise and on no immunosuppressants. 3. IV drug use. RECOMMENDATIONS: 1. No further antibiotics. 2. Follow up white blood cell count over time. Thank you very much for asking me to see him. Call for any further questions. LOKESH WETZEL M.D. PIN MAKER PIN MAKER D I MT: Katerine
[2021-02-08] MEDS: APIXABAN 5 MG TABLET 10 MG PO (20:14)
[2021-02-08] MEDS: TAPENTADOL HCL (*CRX) 50 MG TABLET PO (22:33)
[2021-02-09] MEDS: traMADol HCL (*CRX) 50 MG TABLET PO (00:15)
[2021-02-09] MEDS: SODIUM CHLORIDE 0.9% IV 1,000 ML 150 ML IV CONT ×3 (03:02→16:47)
[2021-02-09 04:21] LABS: Basophils Absolute Auto 0.1 K/mm3 (0.0-0.1); Basophils Percent Auto 0.3 % (0.2-1.2); Eosinophils Absolute Auto 0.6 K/mm3 (0-0.3); Eosinophils Percent Auto 2.6 % (0-4.4); Hematocrit 36.7 % (42.0-52.0); Immature Granulocyte Absolute 1.11 K/mm3 (0.00-0.031); Immature Granulocyte Percent A 5.1 % (0-0.5); Lymphocytes Absolute Auto 3.28 K/mm3 (0.9-3.2); Lymphocytes Percent Auto 15.1 % (18.3-44.2); Mean Corpuscular HGB Conc 35.4 g/dl (32-36); Mean Corpuscular Hemoglobin 30.7 pg (26-34); Mean Corpuscular Volume 86.6 fl (80-100); Mean Platelet Volume 9.5 fl (7.4-10.4); Monocytes Absolute Auto 3.1 K/mm3 (0.1-0.6); Monocytes Percent Auto 14.3 % (2.6-8.5); Neutrophils Absolute Auto 13.6 K/mm3 (1.3-6.7); Neutrophils Percent Auto 62.6 % (45.5-73.1); Nucleated Red Blood Cells Perc 0.2 % (0.0-0.2); Platelet Count Result 299 k/mm3 (150-375); Red Blood Count 4.24 M/mm3 (4.6-6.20); Red Cell Distribution Width 14.3 % (11.5-14.5); White Blood Count 21.7 K/mm3 (4.5-10.0)
[2021-02-09 04:40] LABS: Partial Thromboplastin Time 29.9 SECONDS (22.3-36.8)
[2021-02-09 05:01] LABS: Anion Gap 1 mmol/L (8-16); Blood Urea Nitrogen 5 mg/dL (9-20); Calcium 8.2 mg/dL (8.4-10.2); Carbon Dioxide 25 mmol/L (22-30); Chloride 111 mmol/L (98-107); Estimated CRCL calculation 156 ml/min; Estimated Glomerular Filt Rate > 60; Glucose 96 mg/dL (75-110); Magnesium 1.5 mg/dL (1.6-2.3); Potassium 3.3 mmol/L (3.4-5.0); Sodium 137 mmol/L (137-145)
[2021-02-09 05:16] LABS: Creatine Kinase 2252 U/L (55-170)
[2021-02-09 08:00] VITALS: BP 149/89; PULSE 79; RESP 16; TEMP 36.8; O2SAT 100
[2021-02-09] MEDS: NICOTINE (*PBKC) 21 MG PATCH 1 PATCH TRANSDERM (08:58)
[2021-02-09] MEDS: POTASSIUM CHLORIDE 20 MEQ TABLET.ER 40 MEQ PO (08:58)
[2021-02-09] MEDS: APIXABAN 5 MG TABLET 10 MG PO ×2 (08:58→20:41)
--- NOTE | 2021-02-09 10:44 | PM.PNGS ---
Progress Note: A&P Assessment and Plan (1) Abnormal CT of the abdomen: Code(s): R93.5 - Abnormal findings on diagnostic imaging of other abdominal regions, including retroperitoneum Status: Acute Assessment and Plan: still no complaints of left upper quadrant pain. No problems with eating. It seems most likely that the splenic changes on CT were due to the traumatic injury to the spleen suffered 15 years ago and are not really acute changes. We will follow peripherally. If patient does not develop any left upper quadrant pain or other symptoms suggestive of splenic injury or abscess, no surgical follow-up will be needed. (2) Pulmonary emboli: Code(s): I26.99 - Other pulmonary embolism without acute cor pulmonale Status: Acute Assessment and Plan: Continue anticoagulation (3) Right to left cardiac shunt: Code(s): I28.0 - Arteriovenous fistula of pulmonary vessels Status: Acute Assessment and Plan: plan per Cardiology (4) Polysubstance abuse: Code(s): F19.10 - Other psychoactive substance abuse, uncomplicated Status: Chronic Assessment and Plan: some suicidal ideation expressed as well. Subjective Subjective Date/Time Seen: 02/09/21 10:44 Patient reports: still having pain ( No abdominal pain but having pleuritic substernal chest pain when trying to sleep), tolerating a regular diet, bowel movement and afebrile Review of Systems Review of Systems: All systems reviewed & are unremarkable except as noted in HPI and below Constitutional: Constitutional: Denies anorexia, Denies body ache(s), Denies chills, Reports difficulty sleeping ( due to pleuritic chest pain), Denies fever(s) and Denies headache(s) Respiratory: Respiratory: Denies cough and Denies dyspnea Gastrointestinal: Gastrointestinal: Reports as per HPI, Denies abdominal pain, Denies bloating, Denies dyspepsia, Denies heartburn, Denies nausea and Denies vomiting Neurologic: Denies confusion and Denies headache(s) Exam Const: General: comfortable and no acute distress; No confusion Orientation/consciousness: patient oriented x3 and No confusion GI: Inspection: non-distended, scaphoid and no scars GI Palp: Yes Soft to palpation, No Tenderness to palpation present (GI), No Guarding due to palpation present (GI), No Splenomegaly present, No Palpable mass present and No Rebound tenderness present Auscultation: normal bowel sounds Neuro: General: patient oriented x3, no focal motor deficits and No confusion Extrem: General: no calf tenderness and no edema Objective Data Vital Signs Vital Signs: Vital Signs - 24 hr 02/08/21 11:08 02/08/21 11:38 02/08/21 12:00 Temperature 36.4 C L Pulse Rate 79 73 Respiratory Rate 16 Blood Pressure 151/94 H Pulse Oximetry 100 95 02/08/21 14:00 02/08/21 15:45 02/08/21 20:00 Temperature 36.5 C Pulse Rate 74 74 Respiratory Rate 16 Blood Pressure 153/88 H Pulse Oximetry 100 98 02/08/21 23:10 02/09/21 08:00 Temperature 37.2 C 36.8 C Pulse Rate 73 79 Respiratory Rate 18 16 Blood Pressure 139/85 149/89 H Pulse Oximetry 99 100 Intake/Output Intake/Output: Intake & Output 02/06/21 02/07/21 02/08/21 02/09/21 23:59 23:59 23:59 23:59 Intake Total 5850 6726 5130 2240 Output Total 2300 5950 4375 2450 Balance 3550 776 755 -210 Meds/Results Medications: Active Medications Generic Name Dose Route Start Last Admin Trade Name Freq PRN Reason Stop Dose Admin Apixaban 10 mg 02/08/21 21:00 02/09/21 08:58 Apixaban 5 Mg Tablet PO 02/15/21 21:01 10 mg Q12HR WISAM Administration Apixaban 5 mg 02/16/21 09:00 Apixaban 5 Mg Tablet PO Q12HR WISAM Hydroxyzine HCl 50 mg 02/07/21 18:16 02/07/21 18:24 Hydroxyzine Hcl 25 Mg Tablet PO 50 mg Q6H PRN Administration Agitation Sodium Chloride 1,000 mls @ 150 mls/hr 02/07/21 00:15 02/09/21 10:06 Normal Saline Iv IV CONT 150 mls/hr
--- NOTE | 2021-02-09 11:18 | PM.IMPN ---
Progress Note: A&P Assessment and Plan (1) Deep venous thrombosis (DVT) of both peroneal veins: Code(s): I82.453 - Acute embolism and thrombosis of peroneal vein, bilateral Status: Acute (2) PFO (patent foramen ovale): Code(s): Q21.1 - Atrial septal defect Status: Acute (3) Polysubstance abuse: Code(s): F19.10 - Other psychoactive substance abuse, uncomplicated Status: Chronic (4) Right to left cardiac shunt: Code(s): I28.0 - Arteriovenous fistula of pulmonary vessels Status: Acute (5) Elevated troponin: Code(s): R77.8 - Other specified abnormalities of plasma proteins Status: Acute (6) Rhabdomyolysis: Code(s): M62.82 - Rhabdomyolysis Status: Acute (7) Transaminitis: Code(s): R74.01 - Elevation of levels of liver transaminase levels Status: Acute (8) Pulmonary emboli: Code(s): I26.99 - Other pulmonary embolism without acute cor pulmonale Status: Acute (9) Acute kidney injury: Code(s): N17.9 - Acute kidney failure, unspecified Status: Acute (10) Drug overdose: Code(s): T50.901A - Poisoning by unspecified drugs, medicaments and biological substances, accidental (unintentional), initial encounter Status: Acute (11) Abnormal CT of the abdomen: Code(s): R93.5 - Abnormal findings on diagnostic imaging of other abdominal regions, including retroperitoneum Status: Acute Additional Plan The patient met sepsis criteria on arrival to the emergency department with tachycardia, leukocytosis, lactic acidosis, and acute kidney injury. Lactic acid level has normalized with IV fluid rehydration. Blood cultures have been obtained and are pending. He has been started on empiric antibiotics given findings of possible splenic abscess on imaging. Dr. Jones (infectious Disease) has been consulted and his input is appreciated. Reportedly the patient overdosed on fentanyl several days ago and had been sleeping for days. He denies at this time that it was an intentional however has given conflicting answers to other providers. Crisis has seen him in evaluation and a sitter has been placed in the room as he also held a gun to his head and probably needs inpatient psychiatric treatment on discharge. Presumably secondary to his 3 day fentanyl ?laguerre? in which he any much slept in bed without moving much. Continue aggressive IV fluid rehydration with close monitoring of volume status, renal function, and CK. TOREY 2/2 rhabdomyolysis and dehydration. Repeat renal function has since normalized. Continue to monitor closely while trending CK. Transaminitis w history of IV drug use will check hepatitis panel as well. Cholelithiasis noted on imaging but no evidence of acute cholecystitis on CT or by exam. Nonetheless will order right upper quadrant ultrasound and continue to monitor. It is difficult to say why he has pulmonary emboli as he does not seem to have a lot of risk factors aside from not moving much for 3 days over the weekend as per HPI. CT also shows possible splenic infarction or abscess, could these be septic emboli? Continue heparin drip. Venous Doppler ultrasounds ordered for further evaluation. His troponin is elevated but has remained pretty flat. LV systolic function was normal on echo although there were findings consistent with increased right ventricular pressure and/or volume overload which may be due to his PE. No pulmonary hypertension noted. A large heterogenous appearing spleen noted on CT which could reflect mass, abscess, or possibly infarction. He is currently on heparin drip given pulmonary embolism. He is not having any significant pain at this time. As he technically meets sepsis criteria I suppose he could have an underlying abscess or infection and as such he has been started on broad-spectrum antibiotics. Dr. Jones has been consulted as well. No acute ST changes noted on EKG thus likely not d
[2021-02-09] MEDS: MAGNESIUM SULF 2 GM/WATER 50ML 2 GM/50 ML BAG IVPB (12:09)
[2021-02-09 16:00] VITALS: BP 143/87; PULSE 77; RESP 18; TEMP 36.8; O2SAT 100
[2021-02-09 18:01] LABS: Troponin I 0.024 ng/mL (0.000-0.034)
[2021-02-09] MEDS: ZOLPIDEM TARTRATE (*CRX) 5 MG TABLET PO (20:41)
[2021-02-09 23:03] VITALS: O2SAT 100
[2021-02-09 23:48] VITALS: BP 140/92; PULSE 79; RESP 16; TEMP 36.6; O2SAT 100
[2021-02-10] MEDS: SODIUM CHLORIDE 0.9% IV 1,000 ML 150 ML IV CONT ×2 (00:01→06:25)
[2021-02-10] MEDS: TAPENTADOL HCL (*CRX) 50 MG TABLET PO (00:07)
[2021-02-10 04:46] LABS: Basophils Absolute Auto 0.2 K/mm3 (0.0-0.1); Basophils Percent Auto 0.8 % (0.2-1.2); Eosinophils Absolute Auto 0.6 K/mm3 (0-0.3); Eosinophils Percent Auto 2.6 % (0-4.4); Hematocrit 36.8 % (42.0-52.0); Hemoglobin 12.9 g/dL (14.0-18.0); Immature Granulocyte Absolute 0.95 K/mm3 (0.00-0.031); Lymphocytes Absolute Auto 3.15 K/mm3 (0.9-3.2); Lymphocytes Percent Auto 13.2 % (18.3-44.2); Mean Corpuscular HGB Conc 35.1 g/dl (32-36); Mean Corpuscular Hemoglobin 30.3 pg (26-34); Mean Corpuscular Volume 86.4 fl (80-100); Mean Platelet Volume 9.2 fl (7.4-10.4); Monocytes Absolute Auto 3.4 K/mm3 (0.1-0.6); Monocytes Percent Auto 14.2 % (2.6-8.5); Neutrophils Absolute Auto 15.5 K/mm3 (1.3-6.7); Neutrophils Percent Auto 65.2 % (45.5-73.1); Nucleated Red Blood Cells Perc 0.1 % (0.0-0.2); Platelet Count Result 356 k/mm3 (150-375); Red Blood Count 4.26 M/mm3 (4.6-6.20); Red Cell Distribution Width 14.1 % (11.5-14.5); White Blood Count 23.8 K/mm3 (4.5-10.0)
[2021-02-10 05:22] LABS: Alanine Aminotransferase 341 U/L (4-50); Albumin Level 2.9 g/dL (3.5-5.1); Alkaline Phosphatase 65 U/L (38-126); Anion Gap 4 mmol/L (8-16); Aspartate Amino Transferase 124 U/L (17-59); Bilirubin,Total 0.8 mg/dL (0.2-1.3); Blood Urea Nitrogen 5 mg/dL (9-20); Calcium 8.3 mg/dL (8.4-10.2); Carbon Dioxide 24 mmol/L (22-30); Chloride 108 mmol/L (98-107); Creatine Kinase 893 U/L (55-170); Estimated CRCL calculation 156 ml/min; Estimated Glomerular Filt Rate > 60; Glucose 109 mg/dL (75-110); Magnesium 1.5 mg/dL (1.6-2.3); Phosphorus 3.7 mg/dL (2.5-4.5); Potassium 3.3 mmol/L (3.4-5.0); Sodium 136 mmol/L (137-145)
[2021-02-10] MEDS: NICOTINE (*PBKC) 21 MG PATCH 1 PATCH TRANSDERM (07:59)
[2021-02-10] MEDS: APIXABAN 5 MG TABLET 10 MG PO (07:59)
[2021-02-10 08:00] VITALS: BP 138/87; PULSE 78; RESP 16; TEMP 36.6; O2SAT 99
--- NOTE | 2021-02-10 09:50 | PM.DS ---
DS: Admitting Diagnosis Admitting Diagnosis Admitting Diagnosis: (1) Sepsis: Code(s): A41.9 - Sepsis, unspecified organism Status: Acute (2) Drug overdose: Code(s): T50.901A - Poisoning by unspecified drugs, medicaments and biological substances, accidental (unintentional), initial encounter Status: Acute (3) Rhabdomyolysis: Code(s): M62.82 - Rhabdomyolysis Status: Acute (4) Acute kidney injury: Code(s): N17.9 - Acute kidney failure, unspecified Status: Acute (5) Transaminitis: Code(s): R74.01 - Elevation of levels of liver transaminase levels Status: Acute (6) Pulmonary emboli: Code(s): I26.99 - Other pulmonary embolism without acute cor pulmonale Status: Acute (7) Abnormal CT of the abdomen: Code(s): R93.5 - Abnormal findings on diagnostic imaging of other abdominal regions, including retroperitoneum (8) Elevated troponin: Code(s): R77.8 - Other specified abnormalities of plasma proteins Status: Acute (9) Right to left cardiac shunt: Code(s): I28.0 - Arteriovenous fistula of pulmonary vessels Status: Acute (10) Polysubstance abuse: Code(s): F19.10 - Other psychoactive substance abuse, uncomplicated Status: Inactive DS: Discharge Diagnosis Discharge Diagnosis (1) Deep venous thrombosis (DVT) of both peroneal veins: Code(s): I82.453 - Acute embolism and thrombosis of peroneal vein, bilateral Status: Acute (2) PFO (patent foramen ovale): Code(s): Q21.1 - Atrial septal defect Status: Acute (3) Polysubstance abuse: Code(s): F19.10 - Other psychoactive substance abuse, uncomplicated Status: Chronic (4) Right to left cardiac shunt: Code(s): I28.0 - Arteriovenous fistula of pulmonary vessels Status: Acute (5) Sepsis: Code(s): A41.9 - Sepsis, unspecified organism Status: Acute (6) Elevated troponin: Code(s): R77.8 - Other specified abnormalities of plasma proteins Status: Acute (7) Abnormal CT of the abdomen: Code(s): R93.5 - Abnormal findings on diagnostic imaging of other abdominal regions, including retroperitoneum Status: Acute (8) Drug overdose: Code(s): T50.901A - Poisoning by unspecified drugs, medicaments and biological substances, accidental (unintentional), initial encounter Status: Acute (9) Transaminitis: Code(s): R74.01 - Elevation of levels of liver transaminase levels Status: Acute (10) Acute kidney injury: Code(s): N17.9 - Acute kidney failure, unspecified Status: Acute (11) Pulmonary emboli: Code(s): I26.99 - Other pulmonary embolism without acute cor pulmonale Status: Acute (12) Rhabdomyolysis: Code(s): M62.82 - Rhabdomyolysis Status: Acute (13) Hypomagnesemia: Code(s): E83.42 - Hypomagnesemia Status: Acute (14) Hypokalemia: Code(s): E87.6 - Hypokalemia Status: Acute DS: Summary Hospital Course Reason for hospitalization: weakness Hospital Course: 40 yo M w polysubstance abuse on a laguerre w IV fentanyl after threatening to harm himself w a gun was admitted w TOREY, electrolyte imbalance, acute rhabdomyolysis, b/l DVTs, and PEs. He was placed under suicide watch w 1 to 1 sitter until cleared by crisis counselor. He was found to have PFO on ECHO evaluation and cardiology consulted. Surgery also provided expert consultation on abnormal imaging findings of spleen. no splenic infarction and review of imaging w radiologist reveals similar findings from 2009 imaging. Pt did well. His CPK normalized, and he was discharged home in stable condition after being cleared by distillery worker general. Pt w elevated WBCs seen by ID and advised against abx as this was not thought to be infectious. Pt given indications to avoid ongoing drug use and to follow up w PCP. Time Spent with Patient Ti
[2021-02-10] MEDS: MAGNESIUM SULFATE 3GM/D5W100ML 3 GM/100 ML BAG IVPB (10:47)
[2021-02-10] MEDS: POTASSIUM CHLORIDE 20 MEQ TABLET 40 MEQ PO (10:47)
[2021-02-10 19:55] LABS: SARS-CoV-2 RNA PCR Negative
== END 2021-02-10 14:15 | disposition home or self-care (01) | DRG 917 ==
LOC: ANHED 02-06 13:16 → ANHICU 02-06 21:12
PROVIDERS: Emergency Medicine; General Practice; Physician Assistant; Admitting Provider Family Medicine; Emergency Provider Emergency Medicine; Visit Provider Hospitalist
DX: T40.412A Poisoning by fentanyl or fentanyl analogs, intentional self-harm, initial encounter (principal); I26.99 Other pulmonary embolism without acute cor pulmonale; N17.9 Acute kidney failure, unspecified; Q21.1 Atrial septal defect; M62.82 Rhabdomyolysis; I82.453 Acute embolism and thrombosis of peroneal vein, bilateral; Z20.822 Contact with and (suspected) exposure to COVID-19; E86.0 Dehydration; R16.1 Splenomegaly, not elsewhere classified; L40.9 Psoriasis, unspecified; D72.828 Other elevated white blood cell count; F17.210 Nicotine dependence, cigarettes, uncomplicated; F19.10 Other psychoactive substance abuse, uncomplicated; E83.42 Hypomagnesemia; E87.6 Hypokalemia; R79.89 Other specified abnormal findings of blood chemistry
CPT/HCPCS: 36415; 71045; 71275; 74177; 76705; 80048; 80053; 80074; 80307; 81001; 82550; 83036; 83605; 83690; 83735; 83880; 84100; 84439; 84443; 84480; 84484; 85025; 85055; 85380; 85610; 85652; 85730; 86140; 86703; 87040; 87086; 93005; 93970; 96375; 99291; A9270; C8929; C9803; G0432; J0692; J0696; J1644; J2405; J3370; J3475; J7030; Q9957; Q9967; U0003; U0005

== ENCOUNTER 2022-09-16 20:49 | Emergency (ER) | payer MEDICAID, SELFPAY ==
[2022-09-16 20:50] VITALS: BP 125/69; PULSE 92; RESP 24; TEMP 36.8; O2SAT 100
[2022-09-16] MEDS: HALOPERIDOL LACTATE 5 MG/ML VIAL (21:14)
[2022-09-16] MEDS: LORazepam INJ (*CRX) 2 MG/ML VIAL (21:15)
--- NOTE | 2022-09-16 21:15 | ED.PSYCH ---
HPI - Psych General Chief Complaint: Psychiatric Symptoms Stated Complaint: HALLUCINATIONS, OD Time Seen by Provider: 09/16/22 21:05 History of Present Illness HPI Narrative: HPI limited due to patient's limited cooperation and aggressive behavior. This is a 42-year-old male brought in by EMS for hallucinations and aggressive behavior. Patient states I need buprenorphine. He is unable to tell me when his last dose was. He denies suicidal homicidal ideations but is aggressive toward staff. Related Data Allergies Allergy/AdvReac Type Severity Reaction Status Date / Time erythromycin base Allergy Mild Hives Verified 02/05/21 19:48 Review of Systems Review of Systems: ROS limited due to patient's aggressive behavior and limited cooperation CARDIOVASCULAR: Denies chest pain, palpitations, or edema. RESPIRATORY: Denies cough or dyspnea. GASTROINTESTINAL: abdominal pain, nausea, vomiting MUSCULOSKELETAL: Myalgias PSYCHIATRIC: Denies SI/HI PMFSH Past Medical History Medical History Pancreatitis due to biliary obstruction Reportedly had biliary pancreatitis a few years ago and required ERCP with biliary stent placement and subsequent stent removal. He never had a cholecystectomy following the pancreatitis due to conflicting recommendations from his physicians at that time. Polysubstance abuse Psoriasis Splenic laceration Severe injury to the spleen in 2005 resulting in a hospitalization at [facility] for monitoring. No surgical intervention. Surgical History Surgical History History of mandibular surgery History of orthopedic surgery Left fibular fracture repair. Family History Family History Mother Uterine cancer Social History Social History Social History: The patient is staying with his parents in [place]. Currently going through a divorce. He has children without significant medical problems. Smokes about a pack of cigarettes per day and has for 20 years or so. Admits to binge drinking occasionally. History of IV drug use off and on for a long time including IV fentanyl and heroin. Annika Oliver, mother, is his emergency contact. Exam Narrative: GENERAL: Well-developed, well-nourished, disheveled HEAD: Normocephalic, atraumatic. EYES: PERRLA and EOMI. ENT: Nares clear, no rhinorrhea or epistaxis. Mucous membranes moist. Oropharynx without tonsillar hypertrophy exudate or other lesions. CHEST: Clear to auscultation. No respiratory distress. No wheezes rales or rhonchi HEART: Regular rate and rhythm. No murmur heard. Normal peripheral pulses. ABDOMEN: Soft, nontender, nondistended, normal active bowel sounds. EXTREMITIES: Normal range of motion. No edema. SKIN: Warm, dry, no rash. NEURO: No focal deficits. Alert and oriented x3. PSYCH: Aggressive Course Course Emergency Course: 21:10 - Patient aggressive towards staff and uncooperative. Will give Haldol and Ativan, obtain labs and reassess. 00:00 - On reevaluation, the patient states he feels much better. He is now calm and cooperative. He states he took the first dose of combined Suboxone naltrexone earlier today prior to the onset of his symptoms. He denies suicidal or homicidal ideations or hallucinations. White blood cell count elevated to 14.7; CBC otherwise unremarkable. Chemistries remarkable. UA unremarkable UDS negative influenza, RSV and COVID-negative. Discussed anticipated opioid withdrawal symptoms. Discussed return emergency precautions including signs/symptoms of ACS and respiratory distress. Patient voiced understanding and is comfortable with the plan. All questions answered to his satisfaction. Vital Signs Vital signs: Vital Signs Temperature 98.2 F 09/16/22 20:50 Pulse Rate 92 09/16/22 20:50 Respiratory Ra
[2022-09-16] MEDS: ONDANSETRON HCL ODT 4 MG TABLET PO (21:30)
[2022-09-16] MEDS: MIDAZOLAM HCL (*CRX) 2 MG/2 ML VIAL 4 MG IM (21:48)
--- NOTE | 2022-09-16 22:33 | PC.NURSE ---
2109-PT became verbally aggressive, hit head on cabinet door. Security called to bedside and haldol and ativan given IM.
--- NOTE | 2022-09-16 22:34 | PC.NURSE ---
2124- PT spitting on floor and dry heaving with nasal secretions, MD ordered zofran odt, pt cooperative with medication.
--- NOTE | 2022-09-16 22:36 | PC.NURSE ---
2145- pt shouting and restless in bed, versed IM given, security remains at bedside
[2022-09-16 22:38] LABS: Basophils Absolute Auto 0.1 K/mm3 (0.0-0.1); Basophils Percent Auto 0.9 % (0.2-1.2); Eosinophils Absolute Auto 0.1 K/mm3 (0-0.3); Eosinophils Percent Auto 0.7 % (0-4.4); Hematocrit 42.9 % (42.0-52.0); Hemoglobin 14.6 g/dL (14.0-18.0); Immature Granulocyte Absolute 0.06 K/mm3 (0.00-0.031); Immature Granulocyte Percent A 0.4 % (0-0.5); Lymphocytes Percent Auto 19.1 % (18.3-44.2); Mean Corpuscular Hemoglobin 27.4 pg (26-34); Mean Corpuscular Volume 80.5 fl (80-100); Mean Platelet Volume 9.8 fl (7.4-10.4); Monocytes Absolute Auto 0.9 K/mm3 (0.1-0.6); Monocytes Percent Auto 6.3 % (2.6-8.5); Neutrophils Absolute Auto 10.6 K/mm3 (1.3-6.7); Neutrophils Percent Auto 72.6 % (45.5-73.1); Platelet Count Result 314 k/mm3 (150-375); Red Blood Count 5.33 M/mm3 (4.6-6.20); White Blood Count 14.7 K/mm3 (4.5-10.0)
[2022-09-16 22:39] LABS: Add Urine Microscopic? NO; Appearance Urine Clear (Clear); Bilirubin Urine Negative (Negative); Blood Urine Negative (Negative); Color Urine Light Yellow (Yellow); Glucose Urine UA Negative (Negative); Ketones Urine Negative (Negative); Leukocyte Esterase Ur Negative LEU/UL (Negative); Nitrate Urine Negative (Negative); Protein Urine Negative (Negative); Urobilinogen Urine 0.2 mg/dL (<2.0); pH Urine 8.5 (5.0-9.0)
[2022-09-16 22:41] LABS: RBC Urine 0-2 /hpf (0-2); WBC Urine 0-3 /hpf
--- NOTE | 2022-09-16 22:46 | PC.NURSE ---
Pt resting, security left bedside at this time.
[2022-09-16 22:50] LABS: Alanine Aminotransferase 24 U/L (6-50); Albumin Level 4.3 g/dL (3.5-5.1); Alkaline Phosphatase 82 U/L (38-126); Anion Gap 5 mmol/L (8-16); Aspartate Amino Transferase 36 U/L (17-59); Bilirubin,Total 0.5 mg/dL (0.2-1.3); Blood Urea Nitrogen 5 mg/dL (9-20); Carbon Dioxide 28 mmol/L (22-30); Chloride 104 mmol/L (98-107); Creatine Kinase 116 U/L (55-170); Estimated CRCL calculation 139 ml/min; Estimated Glomerular Filt Rate > 60; Glucose 105 mg/dL (65-110); Potassium 3.6 mmol/L (3.4-5.0); Sodium 137 mmol/L (137-145)
[2022-09-16 22:53] LABS: Amphetamine Screen Urine Negative (Negative); Barbiturate Screen Urine Negative (Negative); Benzodiazepines Screen Urine Negative (Negative); Cannabinoid Screen Urine Negative (Negative); Cocaine Screen Urine Negative (Negative); Methadone Screen Urine Negative (Negative); Opiate Screen Urine Negative (Negative); Phencyclidine Screen Urine Negative (Negative)
--- NOTE | 2022-09-16 23:05 | PC.NURSE ---
Mother contact: Annika- [phone]
[2022-09-16 23:15] LABS: Influenza A QL RT-PCR Negative (Negative); Influenza B QL RT-PCR Negative (Negative); RSV RNA, RT-PCR Negative (Negative); SARS-CoV-2 RNA PCR Negative
[2022-09-17 00:50] VITALS: BP 121/86; PULSE 89; RESP 18; O2SAT 99
== END 2022-09-17 01:05 | disposition home or self-care (01) ==
PROVIDERS: Emergency Provider Preventive Medicine Aerospace Medicine
DX: F11.23 Opioid dependence with withdrawal (principal); R45.6 Violent behavior; Z20.822 Contact with and (suspected) exposure to COVID-19; F17.210 Nicotine dependence, cigarettes, uncomplicated; Z79.01 Long term (current) use of anticoagulants
CPT/HCPCS: 36415; 80053; 80307; 81003; 82550; 85025; 87637; 96372; 99284; A9270; J1630; J2060; J2250